=== PATIENT | female | born 1970 | race Caucasian/White ===

== ENCOUNTER 2017-04-18 18:59 | Emergency (ER) | payer MEDICAID ==
[~2017-04-18] VITALS: Ht 157.5 cm; Wt 77.2 kg
[2017-04-18 19:17] VITALS: Ht 157.5 cm; Wt 77.2 kg
[2017-04-18] MEDS ORDERED: IBUP-1542 PO (19:47)
[2017-04-18] MEDS ORDERED: AMO500 PO (19:47)
--- NOTE | 2017-04-18 20:10 | ERD ---
ER Documentation Chief Complaint Date/Time DATE: 04/18/17 TIME: 20:08 Chief Complaint RT EAR PAIN +BLEEDING X 3 DAYS. DENIES TRAUMA HPI 47-year-old female presents here in emergency department for complaints of right ear pain started 3 days ago. Patient described the pain as sharp pain, 6/ 10 scale, noticed some bleeding from the right ear the last 2 days. Patient denies any trauma in the ear. Patient does any problems with hearing. Patient denies any fever or chills. Patient did not take any medications to help with symptoms. ROS All systems reviewed and are negative except as per history of present illness. Medications Home Meds Active Scripts Amoxicillin* (Amoxicillin*) 500 Mg Cap, 500 MG PO TID for 10 Days, CAP Prov:LOUISE LINN [employer]CH[employer]ICIAN 04/18/17 Ibuprofen* (Motrin*) 600 Mg Tab, 600 MG PO Q6H Y for PAIN AND OR ELEVATED TEMP, #30 TAB Prov:LOUISE LINN NP 04/18/17 Allergies Allergies: Coded Allergies: No Known Allergy (Unverified , 04/18/17) PMhx/Soc Medical and Surgical Hx: pt denies Medical Hx, pt denies Surgical Hx FmHx Family History: No coronary disease, No diabetes, No other Physical Exam Vitals Vital Signs Date Time Temp Pulse Resp B/P Pulse Ox O2 Delivery O2 Flow Rate FiO2 04/18/17 19:17 98.7 71 20 110/60 100 Physical Exam GENERAL: The patient is well developed and appropriate for usual state of health, in no apparent distress. HEENT: Atraumatic. Ears: Right ear tympanic membrane noted to be perforated, no bleeding noted, no purulent discharge. Normal left tympanic membrane, no erythema or bulging. No ear canal swelling. No ear discharge. Nose: normal nasal turbinates, no erythema or swelling. Normal nasal discharge. Throat: oropharynx clear. No tonsillar swelling or tonsillar exudates. No lymphadenopathy. CHEST: Clear to auscultation bilaterally. There are no rales, wheezes or rhonchi. HEART: Regular rate and rhythm. No murmurs, clicks, rubs or gallops. No S3 or S4. ABDOMEN: Soft, nontender and nondistended. Good bowel sounds. No rebound or guarding. No gross peritonitis. No gross organomegaly or masses. No Leach sign or McBurney point tenderness. BACK: No midline or flank tenderness. EXTREMITIES: Equal pulses bilaterally. There is no peripheral clubbing, cyanosis or edema. No focal swelling or erythema. Full range of motion. Grossly neurovascularly intact. NEURO: Alert and oriented. Cranial nerves 2-12 intact. Motor strength in all 4 extremities with 5/5 strength. Sensation grossly intact. Normal speech and gait. SKIN: There is no apparent rash or petechia. The skin is warm and dry. HEMATOLOGIC AND LYMPHATIC: There is no evidence of excessive bruising or lymphedema. No gross cervical, axillary, or inguinal lymphadenopathy. Procedures/MDM Medical decision making: Patient symptoms is likely consistent with right otitis media with tympanic membrane perforation. No symptoms of otitis externa or mastoiditis. No foreign body in the ear. No cerumen impaction. Prescription was given for amoxicillin, ibuprofen, is advised to follow-up with primary care doctor in 2-3 days for reevaluation of symptoms. Patient is advised to avoid using Q-tips to clean the ear. Patient is advised to return to emergency department for any worsening symptoms. Departure Diagnosis: Primary Impression: Otitis media Otitis media type: serous Laterality: right Chronicity: acute Recurrence : not specified as recurrent Qualified Code: H65.01 - Right acute serous otitis media, recurrence not specified Additional Impression: Tympanic membrane perforation Laterality: right Qualified Code: H72.91 - Tympanic membrane perforation, right Condition: Stable Patient Instructions: Otitis Media, Abx Tx (Adult), Ruptured Tm, Infected ( Adult) LOUISE LINN NP April 18, 2017 20:10
== END 2017-04-18 19:53 | disposition home or self-care (01) ==
LOC: E/R 18:59
DX: H65.01 Acute serous otitis media, right ear (principal); H72.91 Unspecified perforation of tympanic membrane, right ear
CPT/HCPCS: 99283

== ENCOUNTER 2017-09-08 19:17 | Emergency (ER) | payer MEDICAID ==
[~2017-09-08] VITALS: Ht 160 cm; Wt 71.0 kg
[~2017-09-08 19:17] MED LIST: AMOX500C2 PO; IBUP-1542 PO
[2017-09-08 19:26] VITALS: Ht 160 cm; Wt 71.0 kg
--- NOTE | 2017-09-10 10:24 | ERD ---
ER Documentation Chief Complaint Chief Complaint left ear pain x 1 week HPI Patient is a 47-year-old female presenting to the emergency department with complaint of left ear pain constantly for 1 week. Symptoms are worsening. Symptoms are moderate in severity. She took amoxicillin that she had at home from previous prescription. She denies fevers, chills, or other symptoms at this time. ROS All systems reviewed and are negative except as per history of present illness. Medications Home Meds Active Scripts Amoxicillin* (Amoxicillin*) 500 Mg Cap, 500 MG PO TID for 10 Days, CAP Prov:LOUISE LINN [employer] 04/18/17 Ibuprofen* (Motrin*) 600 Mg Tab, 600 MG PO Q6H Y for PAIN AND OR ELEVATED TEMP, #30 TAB Prov:LOUISE LINN [employer] 04/18/17 Allergies Allergies: Coded Allergies: No Known Allergy (Unverified , 04/18/17) PMhx/Soc Medical and Surgical Hx: pt denies Medical Hx, pt denies Surgical Hx Hx Alcohol Use: No Hx Substance Use: No Hx Tobacco Use: No Smoking Status: Never smoker Physical Exam Vitals Vital Signs Date Time Temp Pulse Resp B/P Pulse Ox O2 Delivery O2 Flow Rate FiO2 09/08/17 19:26 97.8 70 20 134/68 100 Physical Exam Const: Nontoxic, well-appearing female in no acute distress. Head: Atraumatic Eyes: Normal Conjunctiva ENT: Normal External Ears, Nose and Mouth. Greenish fluid present behind the left TM with slight erythema to the TM but no bulging. The right tympanic membrane and external auditory canal is normal in appearance. Skin: No petechiae or rashes Ext: No cyanosis, or edema Neur: Awake and alert Psych: Normal Mood and Affect Procedures/MDM 47-year-old female presents to the emergency department complains of left ear pain. History and physical examination is consistent with otitis media which is uncomplicated. Low suspicion for sepsis or other emergent conditions. Patient stable for outpatient management with a prescription for Augmentin and ibuprofen. The patient was in agreement with the discharge plan a diagnosis. The patient is to follow-up with her primary care physician within the next 1-2 days. The patient may return here immediately for any new or worsening symptoms. Departure Diagnosis: Primary Impression: Otitis media Otitis media type: unspecified Chronicity: acute Qualified Code: H66.90 - Acute otitis media, unspecified otitis media type Condition: Fair Additional Instructions: Follow up with your PCP within the next 1-3 days for a repeat evaluation. If you require a referral to a specialist, your Primary Care Provider may be able to provide this for you. In most patient cases, a referral is not required. If you have further questions regarding this matter, please ask your Primary Care Provider. Return the the emergency department immediately if symptoms worsen or change. If you have any questions regarding medications, ask your pharmacist or us before you leave. If any adverse reactions, occur while taking your medications, discontinue the treatment and return to the emergency department immediately. If any new or worsening symptoms, uncontrolled fevers, or other unexplained symptoms occur, return to the emergency department immediately. Take your medications as directed, and complete the entire course of treatment. CALE HARRELL PA-C Sep 10, 2017 10:24
== END 2017-09-08 23:15 | disposition home or self-care (01) ==
LOC: FTE 19:17
DX: H66.92 Otitis media, unspecified, left ear (principal)
CPT/HCPCS: 99283